=== PATIENT | male | born 1970 | race Caucasian/White ===

== ENCOUNTER 2023-02-10 07:16 | Day surgery (SDC) | payer BC ==
--- NOTE | 2023-02-09 09:14 | RAD REPORT ---
EXAM DESCRIPTION: Angelica Sanchez And [place] (2 Views)02/09/2023 9:04 am CLINICAL HISTORY: Preop or mass removal COMPARISON: None FINDINGS: The lungs appear clear of acute infiltrate. The heart is normal size IMPRESSION: No acute abnormalities displayed
[2023-02-09 09:20] LABS: Absolute Lymphocytes (CBC) 1.1 K/uL (0.7-4.9); Hematocrit 39.7 % (39.6-49.0); Lymphocytes % 11.5 % (15.3-44.8); MCV 90.7 fL (80-100); MPV 7.8 fL (7.6-11.3); RBC Red Blood Cell Count 4.38 M/uL (4.33-5.43)
--- NOTE | 2023-02-09 16:05 | EKG ---
Test Date: 2023-02-09 Test Time: 08:50:00 Lining Repairer: CARLYLE MEASUREMENT RESULTS: Intervals: Rate: 58 DE: 116 QRSD: 86 QT: 420 QTc: 412 [place]: P: 65 DE: 116 QRS: 98 T: 81 INTERPRETIVE STATEMENTS: Sinus bradycardia Rightward axis Borderline ECG Compared to ECG 05/17/2005 22:31:00 Right-axis deviation now present Sinus rhythm no longer present Electronically Signed On 02-09-23 16:04:36 CDT by Brijesh Alfredo
[2023-02-10] MEDS ORDERED: Ringers Lactate 1,000 ML IV ONE (07:44)
[2023-02-10] MEDS: CEFOXITIN SODIUM 1 GM/VIAL ONE ×2 (09:24→09:35)
[2023-02-10] MEDS ORDERED: propofoL 200 MG/20 ML VIAL IV ONE (09:26)
[2023-02-10] MEDS ORDERED: FENTANYL CITR 100 MCG/2 ML ONE (09:26)
[2023-02-10] MEDS ORDERED: MIDAZOLAM HCL 2 MG/2 ML INJ ONE (09:27)
[2023-02-10] MEDS ORDERED: ONDANSETRON 4 MG/2 ML VIAL ONE (09:29)
[2023-02-10] MEDS ORDERED: LIDOCAINE 2% MPF 5 ML VIAL ONE (09:30)
[2023-02-10] MEDS ORDERED: dexAMETHasone 4 MG/ML VIAL ONE (10:05)
[2023-02-10] MEDS ORDERED: GLYCOPYRROLATE 0.2 MG/ML SYR ONE (10:05)
[2023-02-10] MEDS ORDERED: EPHEDRINE SULF 50 MG/ML VIAL ONE (10:09)
[2023-02-10] MEDS ORDERED: SILVER SULFADIAZINE 1% 25 GM TOP ONE (10:24)
[2023-02-10] MEDS ORDERED: HYDROCODONE/APAP 7.5/325 MG TAB PO PRN (10:45)
[2023-02-10] MEDS: HYDROMORPHONE HCL 1 MG/ML INJ ONE ×4 (10:52→11:19)
[2023-02-10 11:26] VITALS: O2SAT 100
[2023-02-10] MEDS ORDERED: HYDROMORPHONE HCL 1 MG/ML INJ ONE (11:34)
[2023-02-10] MEDS ORDERED: HYDROCODONE/APAP 7.5/325 MG TAB ONE (12:20)
[2023-02-10 12:37] VITALS: BP 118/68; TEMP 97
--- NOTE | 2023-02-10 14:27 | OP ---
Date of Procedure: 02/10/2023 Surgeon: Evan Serna MD Neurology Technologist: None. Preoperative Diagnosis: Perianal mass. 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 Procedures Performed: Exam under anesthesia, rigid proctoscopy, and excision of perianal mass. Estimated Blood Loss: Minimal. Specimen: Perianal mass. Findings: A large fungating perianal mass. Anesthesia: General. Complications: None. Disposition: The patient tolerated the procedure in stable condition and taken to recovery room in g ood general condition. Procedure In Detail: The patient was brought to the OR and placed in supine position. General anest hesia begun. The patient was prepped and draped in the usual sterile fashion in the lithotomy positi on. Marcaine 0.5% was infiltrated locally. Exam under anesthesia revealed a circumferential large p erianal fungating mass. Proctoscopy did not reveal any intraluminal evidence of disease; however, th e mass itself extended to the mucosa of the distal anus. A cautery utilized and the entire mass exci sed in toto and sent to pathology after being appropriately labeled. Wound irrigated. Bleeding cont rolled with cautery. Anal pack consisting of Gelfoam, Surgicel, and Vaseline gauze placed in the loco canal. Sterile dressing applied. The patient was awakened, taken to recovery room in good general condition. /MODL Voice ID: [id number] Report ID: [id number]
== END 2023-02-10 12:30 | disposition home or self-care (01) ==
LOC: OR 07:16
PROVIDERS: ATTEND Surgery
PROC: 0DBR0ZZ Excision of Anal Sphincter, Open Approach (ICD-10-PCS; principal; 2023-02-10 09:00)
DX: A63.0 Anogenital (venereal) warts (principal)
CPT/HCPCS: 46922; 93005; 85025; 80048; 36415; 88305; 71046; J2704; J1100; J2001; J2250; J3010; J1170 ×3; J0694; J2405; J7120